=== PATIENT | male | born 1950 | race Caucasian/White ===

== ENCOUNTER 2018-07-01 08:00 | Inpatient (IN) | payer OTHER ==
[~2018-07-01] VITALS: Ht 190.5 cm; Wt 172.4 kg
[2018-07-01] MEDS ORDERED: LABETALOL HCL300 MG PO (11:33)
[2018-07-01] MEDS ORDERED: LOSARTAN-HCTZ1 EAC1 PO (11:33)
[2018-07-01] MEDS ORDERED: PERCOCET PO (11:34)
[2018-07-01] MEDS ORDERED: AMILODIPINE PO (11:34)
[2018-07-01] MEDS ORDERED: TERAZOSIN HCL2 M1 PO (11:35)
== END 2018-07-10 17:47 | DRG 470 ==
LOC: O/R 07-08 05:10 → SURG 07-08 05:10 → SURH 07-08 07:00 → SURG 07-08 13:50
PROVIDERS: Orthopaedic Surgery
PROC: 0SRC0J9 Replacement of Right Knee Joint with Synthetic Substitute, Cemented, Open Approach (ICD-10-PCS; principal; 2018-07-08 07:00)
DX: M17.11 Unilateral primary osteoarthritis, right knee (principal); D62 Acute posthemorrhagic anemia; I10 Essential (primary) hypertension; E66.01 Morbid (severe) obesity due to excess calories

== ENCOUNTER 2018-09-03 11:49 | Outpatient (CLI) | payer OTHER ==
[~2018-09-03 11:49] MED LIST: AMILODIPINE PO; LABETALOL HCL300 MG PO; LOSARTAN-HCTZ1 EAC1 PO; PERCOCET PO; TERAZOSIN HCL2 M1 PO
== END 2018-09-03 11:58 | disposition home or self-care (01) ==
LOC: RAD 11:49
DX: M25.561 Pain in right knee (principal); M25.562 Pain in left knee

== ENCOUNTER 2018-11-19 14:57 | Outpatient (CLI) | payer OTHER | END 2018-11-19 15:03 | disposition home or self-care (01) | LOC: RAD 14:57 | DX: M19.90 Unspecified osteoarthritis, unspecified site (principal) ==

== ENCOUNTER → 2018-12-25 | Outpatient (CLI) | payer OTHER | END | disposition home or self-care (01) | LOC: RAD 12:52 | DX: M25.561 Pain in right knee (principal); M25.562 Pain in left knee; M25.551 Pain in right hip; M25.552 Pain in left hip ==

== ENCOUNTER 2019-12-07 09:03 | Outpatient (CLI) | payer OTHER | END 2019-12-07 09:09 | disposition home or self-care (01) | LOC: SONOGRAMA 09:03 → MAMO-SONO 10:15 | DX: R10.13 Epigastric pain (principal) ==

== ENCOUNTER 2020-03-23 07:43 | Outpatient (CLI) | payer OTHER | END 2020-03-23 09:37 | disposition home or self-care (01) | LOC: TOM 07:43 | PROVIDERS: ATTEND Internal Medicine Gastroenterology | DX: R10.33 Periumbilical pain (principal) ==

== ENCOUNTER 2023-07-18 09:12 | Outpatient (CLI) | payer OTHER | END 2023-07-18 09:27 | disposition home or self-care (01) | LOC: MRI 09:12 | DX: M51.9 Unspecified thoracic, thoracolumbar and lumbosacral intervertebral disc disorder (principal) ==